=== PATIENT | female | born 1990 | race Hispanic/Latino ===

== ENCOUNTER 2017-04-07 21:49 | Emergency (ER) | payer SELFPAY ==
[~2017-04-07] VITALS: Ht 154.9 cm; Wt 86.2 kg
[2017-04-07] MEDS ORDERED: ZOFRAN ODT4 MG SL (22:56)
[2017-04-07] MEDS ORDERED: IBUPROFEN400 MG PO (22:56)
[2017-04-07] MEDS ORDERED: BROMFED DM COU118 ML PO (22:56)
== END 2017-04-07 23:06 | disposition home or self-care (01) ==
LOC: FSED 21:49
DX: R50.9 Fever, unspecified (principal); R05 Cough; J11.1 Influenza due to unidentified influenza virus with other respiratory manifestations
CPT/HCPCS: 87400